=== PATIENT | female | born 1955 | race Caucasian/White ===

== ENCOUNTER → 2023-01-17 08:55 | Outpatient (BNVA) | payer MEDICARE, OTHER, SELFPAY | PROVIDERS: Family Provider Internal Medicine; PCP Family Medicine; Visit Provider Family Medicine | DX: Z13.6 Encounter for screening for cardiovascular disorders (principal); Z01.419 Encounter for gynecological examination (general) (routine) without abnormal findings | CPT/HCPCS: 80053; 80061; 85025; 87624 ==

== ENCOUNTER → 2023-01-23 16:06 | Outpatient (BNVA) | payer MEDICARE, OTHER, SELFPAY | PROVIDERS: Family Provider Internal Medicine; PCP Family Medicine; Visit Provider Obstetrics & Gynecology | DX: N84.1 Polyp of cervix uteri (principal) | CPT/HCPCS: 88305 ==

== ENCOUNTER 2023-02-01 14:43 | Outpatient (CLI) | payer MEDICARE, OTHER, SELFPAY ==
--- NOTE | 2023-02-01 14:46 | MM_ITS ---
WS: [id number] BILATERAL 3D TOMOSYNTHESIS DIGITAL SCREENING MAMMOGRAPHY WITH CAD CLINICAL INFORMATION: screening HISTORY: Screening mammogram. No current complaints. COMPARISON: 2018 TECHNIQUE: Bilateral CC and MLO views. FINDINGS: Scattered fibroglandular densities bilaterally. No suspicious focal mass, asymmetry, calcifications, or architectural distortion. No evidence of malignancy. IMPRESSION: MM/[place] [id number] BI-RADS: 1-Negative FOLLOW UP: 1 Year Follow-up Recommend return to annual screening mammography.
== END 2023-02-01 14:44 | disposition home or self-care (01) ==
LOC: RAD 14:43
PROVIDERS: Family Provider Internal Medicine; PCP Family Medicine; Visit Provider Family Medicine
DX: Z12.31 Encounter for screening mammogram for malignant neoplasm of breast (principal)
CPT/HCPCS: 77063; 77067

== ENCOUNTER → 2023-02-07 10:52 | Outpatient (BNVA) | payer MEDICARE, OTHER, SELFPAY | PROVIDERS: Family Provider Internal Medicine; PCP Family Medicine; Referring Provider Family Medicine; Visit Provider Nurse Practitioner Family | DX: Z85.828 Personal history of other malignant neoplasm of skin (principal); L57.0 Actinic keratosis; D22.5 Melanocytic nevi of trunk; L57.8 Other skin changes due to chronic exposure to nonionizing radiation; L82.1 Other seborrheic keratosis; L82.0 Inflamed seborrheic keratosis | CPT/HCPCS: 17004; 17110; 99203 ==

== ENCOUNTER → 2023-02-08 12:47 | Outpatient (BNVA) | payer MEDICARE, OTHER, SELFPAY | PROVIDERS: Family Provider Internal Medicine; PCP Family Medicine; Referring Provider Family Medicine; Visit Provider Surgery | DX: Z12.11 Encounter for screening for malignant neoplasm of colon (principal) | CPT/HCPCS: 99024; 99203 ==

== ENCOUNTER → 2023-02-24 10:22 | Outpatient (BNVA) | payer MEDICARE, OTHER, SELFPAY | PROVIDERS: Family Provider Internal Medicine; PCP Family Medicine; Visit Provider Obstetrics & Gynecology | DX: N84.1 Polyp of cervix uteri (principal) | CPT/HCPCS: 76830 ==

== ENCOUNTER 2023-03-01 06:05 | Day surgery (SDC) | payer MEDICARE, OTHER, SELFPAY ==
[2023-03-01 06:18] VITALS: BP 137/83; PULSE 113; RESP 16; TEMP 37.2; O2SAT 90; BMI 21.9
[2023-03-01] MEDS: sodium chloride 0.9% 1,000 ML 30 ML IV (06:29)
--- NOTE | 2023-03-01 06:39 | W.PM.OPSUD ---
Surgery/Procedure H&P Update DATE OF PROCEDURE: March 01, 2023 DATE H&P PERFORMED: 02/08/22 H&P UPDATE INFORMATION: I have reviewed H&P completed within last 30 days, I have examined patient prior to procedure and No changes to prior documentation PLANNED PROCEDURE: Operation Date: 03/01/23 07:00 Proposed Procedures p 12685 colon G0121 screen colon A risk Z12.11(Not Applicable) - Ralph Grimes, DO
--- NOTE | 2023-03-01 06:48 | ANES.PREANE2 ---
Pre-Anesthetic Assessment Height/Weight: Height 1.63 m Weight 58.06 kg Temp Pulse Resp BP Pulse Ox O2 Del Method 99.0 F 113 H 16 137/83 90 Room Air 03/01/23 06:18 03/01/23 06:18 03/01/23 06:18 03/01/23 06:18 03/01/23 06:18 03/01/23 06:18 Operation Date: 03/01/23 07:00 Proposed Procedures p 27955 colon G0121 screen colon A risk Z12.11(Not Applicable) - Ralph Grimes DO Last intake: Intake Last Liquid Date 02/28/23 Last Liquid Time 22:30 Last Solid Date 02/27/23 Last Solid Time 19:00 Social Tobacco Exam alert, oriented x 3 and regular rate & rhythm Airway Submandibular: within normal limits Cervical ROM: within normal limits Mallampati: Class I Dentition: false History/ROS No significant history except as noted and No significant complaints Pulmonary Cough, Exertional Dyspnea and Shortness of Breath CV/HEM None reported None reported Hepatic None reported GI None reported Metabolic None reported Musc/skel Osteoarthritis/DJD Neuropsych Anxiety and Depression Anesthetic Plan ASA status: 2 Anesthesia: MAC Risk of > 500 ml blood loss (7ml/kg in children): No Medications/Allergies Home Medications Medication Instructions Recorded Confirmed Last Taken Type bupropion HCl 300 mg 24 hr tablet, 300 mg PO QAM #30 tabs 01/17/23 03/01/23 03/01/23 Rx extended release Allergies Allergy/AdvReac Type Severity Reaction Status Date / Time No Known Allergies Allergy Unverified 02/08/23 13:02 Current Medications Generic Name Dose Route Start Last Admin Trade Name Evelyn PRN Reason Stop Dose Admin Sodium Chloride 1,000 mls @ 30 mls/hr 03/01/23 06:15 03/01/23 06:29 Sodium Chloride 0.9% IV 03/02/23 06:14 30 mls/hr .Q24H ROSA Administration PFSH Anesthesia Medical History History of squamous cell carcinoma History of basal cell cancer History of depression History of anxiety Surgical History History of laminectomy Lumbar History of tubal ligation History of cataract surgery Family History Grandfather Liver disease Father Diabetes mellitus, type 2 Chronic kidney disease (CKD) Mother Cancer Grandmother Dementia Social History Smoking and tobacco/nicotine status: current every day tobacco/nicotine user Quit status (tobacco/nicotine): not considering quitting Alcohol intake: never Substance/Drug Use: current Household members: children Housing: House Marital status: / Number of children: 2 Highest education level completed: Associate Degree: Occupational, Technical, Vocational Program 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
[2023-03-01 07:29] VITALS: BP 134/77; PULSE 85; RESP 16; TEMP 36.1; O2SAT 98
[2023-03-01 07:42] VITALS: BP 141/84; PULSE 77; RESP 18
--- NOTE | 2023-03-01 14:14 | ANE.PACU2 ---
Inpatient post-anesthesia follow up: Airway intact: Yes Vital signs: Temperature 97.0 F Pulse Rate 77 Respiratory Rate 18 Blood Pressure 141/84 Pulse Oximetry 98 Oxygen Delivery Me thod Room Air Oxygen Flow Rate Fraction of Inspir ed Oxygen Hydration adequate: Yes Nausea and vomiting: No Pain level: 2 Mental status: Baseline
== END 2023-03-01 08:00 | disposition home or self-care (01) ==
PROVIDERS: PCP Family Medicine; Visit Provider Surgery
PROC: 0DJD8ZZ Inspection of Lower Intestinal Tract, Via Natural or Artificial Opening Endoscopic (ICD-10-PCS; CPT 45378; principal; 2023-03-01 07:00)
DX: Z12.11 Encounter for screening for malignant neoplasm of colon (principal); K63.5 Polyp of colon; F17.210 Nicotine dependence, cigarettes, uncomplicated
CPT/HCPCS: 45385; 88305; J2704; J7030

== ENCOUNTER → 2023-03-20 08:36 | Outpatient (BNVA) | payer MEDICARE, OTHER, SELFPAY | PROVIDERS: PCP Family Medicine; Visit Provider Surgery | DX: Z09 Encounter for follow-up examination after completed treatment for conditions other than malignant neoplasm (principal); D37.4 Neoplasm of uncertain behavior of colon | CPT/HCPCS: 99214 ==

== ENCOUNTER → 2024-01-29 09:00 | Outpatient (BNVA) | payer MEDICARE, OTHER, SELFPAY | PROVIDERS: PCP Family Medicine; Referring Provider Family Medicine; Visit Provider Surgery | DX: R03.0 Elevated blood-pressure reading, without diagnosis of hypertension (principal); K40.20 Bilateral inguinal hernia, without obstruction or gangrene, not specified as recurrent; Z12.11 Encounter for screening for malignant neoplasm of colon; D12.6 Benign neoplasm of colon, unspecified | CPT/HCPCS: 99214 ==

== ENCOUNTER 2024-01-30 09:51 | Outpatient (CLI) | payer MEDICARE, OTHER, SELFPAY ==
--- NOTE | 2024-01-30 10:00 | CT_ITS ---
WS: [id number] LDCT LUNG CANCER SCREENING HISTORY: smoker; 50pk yr hx; screening lung ca TECHNIQUE: Axial imaging performed from the apices to 1 cm below the costophrenic angles. Coronal and sagittal reformats are submitted with axial MIP series. All CT scans at [facility] use at least one of these dose optimization techniques: automated exposure control; mA and/or kV adjustment per patient size (includes targeted exams where dose is matched to clinical indication); or iterativ e reconstruction. DLP: 45.50 mGy.cm DIvol: Mean CTDIvol: 0.70 (mGy) COMPARISON: None available. Diagnostic quality: Satisfactory Lungs: Marked pulmonary hyperinflation. There are a few scattered micronodules. No mass identified wi thin the lungs. Mild pleural thickening along the RIGHT minor fissure. No endobronchial lesions. Heart: Normal size heart with no pericardial effusion.. Other findings: Significant fullness noted at the level of the LEFT aortopulmonary window and LEFT hi lum. Additional increased lymph node burden, subcarinal and inferior RIGHT paratracheal. Mild atherosclerosis aorta. Diffuse sarcopenia. Adrenal glands are poorly visualized. Mild increase i n osteopenia. CT/CT lung screening [id number] IMPRESSION: LUNG-RADS: 2S-Benign Appearance or Behavior with Significant Findings FOLLOW UP: See Report OTHER FINDINGS (S MODIFIER): There is significant fullness at the LEFT hilum an d at the AP window. Recommend chest CT with IV contrast follow-up at this time. Mediastinal and hilar lymphadenopathy is suspected and needs to be excluded.
== END 2024-01-30 09:52 | disposition home or self-care (01) ==
LOC: RAD 09:52
PROVIDERS: PCP Family Medicine; Visit Provider Family Medicine
DX: Z12.2 Encounter for screening for malignant neoplasm of respiratory organs (principal); F17.219 Nicotine dependence, cigarettes, with unspecified nicotine-induced disorders; R93.1 Abnormal findings on diagnostic imaging of heart and coronary circulation; M62.84 Sarcopenia; R91.8 Other nonspecific abnormal finding of lung field
CPT/HCPCS: 71271

== ENCOUNTER 2024-03-05 06:20 | Day surgery (SDC) | payer MEDICARE, SELFPAY ==
[2024-03-05] VITALS (15 sets, daily range): BP systolic 112–161; BP diastolic 74–86; PULSE 92–107; RESP 15–20; TEMP 36.1–36.5; O2SAT 87–95; BMI 22.3
[2024-03-05] MEDS: sodium chloride 0.9% 1,000 ML 30 ML IV (06:41)
--- NOTE | 2024-03-05 07:01 | PM.HP ---
Providers/Chief Complaint Primary Care Provider: Padmini Curiel MD Chief Complaint: K40.20 History of Present Illness Radha Woods is a 68 year old female Review of Systems General: Reports: 10 or more systems reviewed and unremarkable except in HPI and below Medications/Allergies Home Medications Medication Instructions Recorded Confirmed Last Taken Type bupropion HCl 300 mg 24 hr tablet, 300 mg PO QAM #30 tabs 12/15/23 03/05/24 03/04/24 Rx extended release Allergies Allergy/AdvReac Type Severity Reaction Status Date / Time No Known Allergies Allergy Unverified 01/29/24 09:03 PFSH Acute PFSH: Medical History Anxiety and depression Screening for lung cancer Nicotine dependence, cigarettes, uncomplicated History of squamous cell carcinoma History of basal cell cancer Surgical History Hx of colonoscopy with polypectomy 1.24---adenomas; to f/u 3 yrs History of laminectomy Lumbar History of tubal ligation History of cataract surgery OU Family History Grandfather Liver disease Father Diabetes mellitus, type 2 Chronic kidney disease (CKD) Mother Cancer squamous cell of bile duct that metastasized Grandmother Dementia Social History Smoking and tobacco/nicotine status: current every day tobacco/nicotine user cigarettes Packs smoked per day: 1 Years cigarettes smoked: 50 [ Other cigarette details: age 18 started] Quit status (tobacco/nicotine): not considering quitting Alcohol intake: never Substance/Drug Use: current Household members: children Housing: House Marital status: / Number of children: 3 Highest education level completed: Associate Degree: Occupational, Technical, Vocational Program 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 Education Current occupational status: employed 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[employer] Current occupational exposures/hazards: No Vitals/I&O/Wt Last Vital Signs Temp 97.7 F 03/05/24 06:35 Pulse 102 H 03/05/24 06:35 Resp 20 H 03/05/24 06:35 BP 143/86 03/05/24 06:35 Pulse Ox 92 03/05/24 06:35 O2 Del Method Room Air 03/05/24 06:44 Weight last 48 hrs Weight 130 lb A&P Assessment and plan (1) Bilateral inguinal hernia: Plan Laparoscopic right inguinal hernia repair with mesh Laparoscopic left inguinal hernia repair with mesh The risks and benefits were explained and documented Attestations Medical Necessity Statement*: Home Coding Level of Care Code Acute Code for Chg Fwd Diagnoses Bilateral inguinal hernia K40.20
--- NOTE | 2024-03-05 07:21 | ANES.PREANE2 ---
Pre-Anesthetic Assessment Height/Weight: Height 1.63 m Weight 58.967 kg Temp Pulse Resp BP Pulse Ox O2 Del Method 97.7 F 102 H 20 H 143/86 92 Room Air 03/05/24 06:35 03/05/24 06:35 03/05/24 06:35 03/05/24 06:35 03/05/24 06:35 03/05/24 06:44 Operation Date: 03/05/24 08:00 Proposed Procedures p Laparoscopic Inguinal Hernia Repair with mesh [id number]: K40.20(Bilateral) - Ralph Grimes DO Familial anesthetic complications: None Was Beta Marilyn taken within 24 hours: N/A Was Clonidine taken within 24 hours: N/A Last intake: Intake Last Liquid Date 03/04/24 Last Liquid Time 22:00 Last Solid Date 03/04/24 Last Solid Time 19:00 Social Tobacco and No alcohol Exam alert, oriented x 3, clear to auscultation bilaterally and regular rate & rhythm Airway Mallampati: Class II Dentition: false Anesthetic Plan ASA status: 2 Anesthesia: General Risk of > 500 ml blood loss (7ml/kg in children): No Medications/Allergies Home Medications Medication Instructions Recorded Confirmed Last Taken Type bupropion HCl 300 mg 24 hr tablet, 300 mg PO QAM #30 tabs 12/15/23 03/05/24 03/04/24 Rx extended release Allergies Allergy/AdvReac Type Severity Reaction Status Date / Time No Known Allergies Allergy Unverified 01/29/24 09:03 Current Medications Generic Name Dose Route Start Last Admin Trade Name Freq PRN Reason Stop Dose Admin Sodium Chloride 1,000 mls @ 30 mls/hr 03/04/24 14:45 03/05/24 06:41 Sodium Chloride 0.9% IV 03/05/24 14:44 30 mls/hr .Q24H ROSA Administration PFSH Anesthesia Medical History Anxiety and depression Screening for lung cancer Nicotine dependence, cigarettes, uncomplicated History of squamous cell carcinoma History of basal cell cancer Surgical History Hx of colonoscopy with polypectomy 1.24---adenomas; to f/u 3 yrs History of laminectomy Lumbar History of tubal ligation History of cataract surgery OU Family History Grandfather Liver disease Father Diabetes mellitus, type 2 Chronic kidney disease (CKD) Mother Cancer squamous cell of bile duct that metastasized Grandmother Dementia Social History Smoking and tobacco/nicotine status: current every day tobacco/nicotine user cigarettes Packs smoked per day: 1 Years cigarettes smoked: 50 [ Other cigarette details: age 18 started] Quit status (tobacco/nicotine): not considering quitting Alcohol intake: never Substance/Drug Use: current Household members: children Housing: House Marital status: / Number of children: 3 Highest education level completed: Associate Degree: Occupational, Technical, Vocational Program Education level 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
[2024-03-05] MEDS: ceFAZolin 2,000 mg SDV 2000 MG IVP (07:53)
[2024-03-05] MEDS: tranexamic acid 1,000 mg/10mL SDV 1000 MG IV (08:38)
[2024-03-05] MEDS: lidocaine-epi 2% PF 1:200,000 20 mL SDV XX (08:39)
--- NOTE | 2024-03-05 09:04 | PM.OP ---
Operative Report Date of procedure: March 05, 2024 Surgeon: Ralph Grimes DO Procedure: Pre-op diagnosis: Bilateral inguinal hernias Post-op diagnosis: Bilateral direct inguinal hernias Procedure done: Laparoscopic (TEPP) repair of right inguinal hernia with mesh Laparoscopic (TEPP) repair of left inguinal hernia with mesh Implants: Left and right extra-large 3D max Bard mesh is Specimens removed/disposition: None Surgeon: Ralph Grimes DO Anesthesia: General and Local Estimated blood loss (mL): 5 Complications: None apparent Brief History: This is a very pleasant 68-year-old female who presented my office with bilateral inguinal hernias. Laparoscopic repair with mesh was indicated. The risks and benefits were explained and documented. Procedure: Patient was wheeled into the operative room and placed on the OR table in a supine position. Abdomen was inspected prepped and draped in usual sterile fashion. Time-out was performed and all present were in agreement. A 15 blade scalpel was used to make 1.2 centimeter incision infraumbilically. Combination of sharp and blunt dissection was performed down to the anterior rectus sheath which was opened sharply. The dissecting balloon was then inserted into the space of Retzius and blown up. We put the camera into the port and identified that we were in the correct space. I then placed 2 5 millimeter trocars suprapubically in the midline. I then used endokitners to bluntly dissect in the space of Retzius out laterally. A direct inguinal hernia was identified on the right. Blunt dissection was performed to dissect down the hernia sac out of the defect. An extra-large 3D max Bard right inguinal mesh was then placed into the space of Retzius. The mesh was unrolled and tacked once medially at the pubic bone. The mesh laid out nicely over the defect. A direct inguinal hernia was identified on the left. Blunt dissection was performed to dissect down the hernia sac out of the defect. An extra-large 3D max Bard left inguinal mesh was then placed into the space of Retzius. The mesh was unrolled and tacked once medially at the pubic bone. The mesh laid out nicely over the defect. Hernia sacs were held underneath the meshes as the insufflation was released. Incisions were closed with 4 O Vicryl in a subcuticular interrupted fashion. Skin glue was applied. Patient tolerated the procedure well.
[2024-03-05] MEDS: HYDROcodone-acetaminophen 7.5-325 mg Tablet 1 TAB PO (10:03)
[2024-03-05] MEDS: albuterol 2.5 mg/3 mL Neb INHALATION (10:37)
[2024-03-05] MEDS: ipratropium 0.5 mg/2.5 mL Neb INHALATION (10:37)
--- NOTE | 2024-03-05 10:59 | PC.NURSE ---
1040 - pt continues to run 88% on room air and 90 on 2L. receiving breathing treatment.
--- NOTE | 2024-03-05 11:43 | PC.NURSE ---
1130 - pt up to bathroom. back to bed. O2 sat 77% when hooked back up to pulse ox. pt up to 90%on room air. Dr. Acharya in to see pt. pt has no distress at this time. instructed to watch pt for a while longer.
--- NOTE | 2024-03-05 12:02 | PC.NURSE ---
pt sat running 88%-90% on room air.
--- NOTE | 2024-03-05 12:07 | PC.NURSE ---
spoke with dr. crook . ok for pt to go home . instructed to return to the ER for any problems breathing.
--- NOTE | 2024-03-05 12:10 | ANE.PACU2 ---
Inpatient post-anesthesia follow up: Airway intact: Yes Vital signs: Temperature 97 F Pulse Rate 103 Respiratory Rate 18 Blood Pressure 133/76 Pulse Oximetry 90 Oxygen Delivery Me thod Room Air Oxygen Flow Rate 2 Fraction of Inspir ed Oxygen Hydration adequate: Yes Nausea and vomiting: No Pain level: 1 Mental status: Baseline
== END 2024-03-05 12:10 | disposition home or self-care (01) ==
PROVIDERS: PCP Family Medicine; Visit Provider Surgery
PROC: (CPT 49650; principal; 2024-03-05 08:00)
DX: K40.20 Bilateral inguinal hernia, without obstruction or gangrene, not specified as recurrent (principal); F17.210 Nicotine dependence, cigarettes, uncomplicated; Z85.828 Personal history of other malignant neoplasm of skin
CPT/HCPCS: 49650; 51702; 94640; C1781; J0690; J2250; J2704; J3010; J3490; J7030; J7613; J7644

== ENCOUNTER → 2024-03-18 09:51 | Outpatient (BNVA) | payer MEDICARE, SELFPAY | PROVIDERS: PCP Family Medicine; Visit Provider Surgery | DX: Z98.890 Other specified postprocedural states (principal); Z87.19 Personal history of other diseases of the digestive system | CPT/HCPCS: 99024 ==

== ENCOUNTER 2024-04-08 10:54 | Outpatient (CLI) | payer MEDICARE, SELFPAY ==
--- NOTE | 2024-04-08 10:57 | MM_ITS ---
WS: [id number] SCREENING DIGITAL TOMOSYNTHESIS MAMMOGRAM WITH CAD HISTORY: SCREENING COMPARISON: 02/01/2023, 05/22/2017 Bilateral CC and MLO with tomosynthesis views submitted. Synthetic mammography reviewed. Computer aided detection analyzed. Breast composition: There are scattered areas of fibroglandular density. No suspicious masses, microcalcifications or architectural distortion. MM/MM scr BI tomosynthesis [id number] IMPRESSION: BI-RADS: 2 - Benign. FOLLOW UP: 1 Year Follow-up
== END 2024-04-08 10:55 | disposition home or self-care (01) ==
LOC: RAD 10:55
PROVIDERS: PCP Family Medicine; Visit Provider Family Medicine
DX: Z12.31 Encounter for screening mammogram for malignant neoplasm of breast (principal); R92.323 Mammographic fibroglandular density, bilateral breasts
CPT/HCPCS: 77063; 77067

== ENCOUNTER 2024-05-05 06:29 | Emergency (ER) | payer MEDICARE, SELFPAY ==
[2024-05-05] VITALS (60 sets, daily range): BP systolic 80–115; BP diastolic 51–78; PULSE 69–158; RESP 15–39; TEMP 36.6; O2SAT 87–94; BMI 21.8
--- NOTE | 2024-05-05 06:42 | ECG_ITS ---
Athletic Standard Test Date: 2024-05-05 Pat Name: Radha Woods Department: Room: Gender: Female Rink Rat: : 1955 Requested By: Basim Meneses Order Number: [id number] Reading MD: Measurements Intervals [place] Rate: 154 P: 0 WA: 0 QRS: 127 QRSD: 72 T: 46 QT: 234 QTc: 375 Interpretive Statements ATRIAL FLUTTER/TACHYCARDIA WITH RAPID VENTRICULAR RESPONSE SEPTAL MYOCARDIAL INFARCTION , OF INDETERMINATE AGE [40+ ms Q WAVE IN V1/V2] LATERAL MYOCARDIAL INFARCTION , OF INDETERMINATE AGE [40+ ms Q WAVE AND/OR ST/T ABNORMALITY IN I/aVL/V5/V6] CRITICAL TEST RESULT No previous ECG available for comparison [email or web address]
--- NOTE | 2024-05-05 06:54 | XRR_ITS ---
PROCEDURE INFORMATION: Exam: XR Chest Exam date and time: 05/05/2024 7:48 AM Age: 68 years old Clinical indication: Shortness of breath; Additional info: Tachycardia, shortness of breath TECHNIQUE: Imaging protocol: Radiologic exam of the chest. Views: 1 view. COMPARISON: CT lung screening [id number] 01/30/2024 10:07 AM FINDINGS: Lungs: Left lower lobe consolidation/collapse. Left upper lobe collapsed. Pleural spaces: Moderate left pleural effusion. Heart/Mediastinum: Unremarkable. No cardiomegaly. Vasculature: There are aortic arch calcifications. Bones/joints: There are mild degenerative changes of the glenohumeral joint. Mild degenerative disease of bilateral acromioclavicular joints. Soft tissues: Left hilar soft tissue lesion is partially obliterated by surrounding airspace opacities. XR/XR chest 1V portable [id number] IMPRESSION: 1. Left hilar mass with collapse of the left upper lobe. 2. Moderate left pleural effusion with left lower lobe consolidation/collapse
[2024-05-05] MEDS: dilTIAZem 5 mg/mL SDV 5 mL 10 MG IVP (06:58)
--- NOTE | 2024-05-05 07:07 | ED_ITS ---
HPI - Arrhythmia/Palpitations 2 General: Chief Complaint: Arrhythmia/Palpitations Stated Complaint: sob for a few days Time Seen by Provider: 05/05/24 06:44 History of Present Illness: Patient presents to the ER with a fast heart rate and shortness of breath. Patient said this been going on for couple days she gets this frequently but normally she can take 2 or 3 big deep breaths and her heart rate will slow back down but starting about 2 hours ago her heart rate would not slow down even when she was taking big deep breaths. She denies any chest pain. Upon arrival to the ER patient has a heart rate of about 155 beats a minute. Over the last week or so patient has been prescribed 2 antibiotics, breathing treatments and steroids by her PCP patient states this did not help and she is just progressively got worse. Related Data Previous Rx's ?Medication ?Instructions ?Recorded bupropion HCl 300 mg 24 hr tablet, 300 mg PO QAM #30 t abs 12/15/23 extended release albuterol sulfate 90 mcg/actuation 2 puff inhalation Q 4H PRN 04/30/24 aerosol inhaler (Ventolin HFA) shortness of breath or wheezing #8.5 grams amoxicillin 875 mg-potassium 1 tab PO BID 10 days #20 tabs 04/30/24 clavulanate 125 mg tablet prednisone 20 mg tablet 40 mg (2 x 20 mg) PO DAILY 5 days 04/30/24 #10 tabs budesonide-formoterol HFA 80 2 puff inhalation BID #10 .2 grams 05/03/24 mcg-4.5 mcg/actuation aerosol inhaler Allergies Allergy/AdvReac Type Severity Reaction Status Date / Time No Known Allergies Allergy Verified 04/30/24 10:26 Review of Systems 2 General: Reports: 10 or more systems reviewed and unremarkable except in HPI and below PFSH ED 2 PFSH: Medical History COPD (chronic obstructive pulmonary disease) Anxiety and depression Screening for lung cancer had LDCT, needs CT w/ contrast due to abnormal Nicotine dependence, cigarettes, uncomplicated History of squamous cell carcinoma History of basal cell cancer Surgical History History of bilateral inguinal hernia repair Hx of colonoscopy with polypectomy 1.24---adenomas; to f/u 3 yrs History of laminectomy Lumbar History of tubal ligation History of cataract surgery OU Family History Grandfather Liver disease Father Diabetes mellitus, type 2 Chronic kidney disease (CKD) Mother Cancer squamous cell of bile duct that metastasized Grandmother Dementia Social History Smoking and tobacco/nicotine status: current every day tobacco/nicotine user cigarettes Packs smoked per day: 1 Years cigarettes smoked: 50 [ Other cigarette details: age 18 started] Quit status (tobacco/nicotine): not considering quitting Alcohol intake: never Substance/Drug Use: current Household members: children Housing: House Marital status: / Number of children: 3 Highest education level completed: Associate Degree: Occupational, Technical, Vocational Program 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 Education Current occupational status: employed 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[employer] Current occupational exposures/hazards: No Physical Exam 2 Const: COMMON NORMALS: no acute distress, average body habitus, patient oriented x3, no limitations, healthy appearing, alert and well nourished HENMT: COMMON NORMALS: normocephalic, atraumatic, hearing grossly normal bilaterally, external ears normal, Normal external nose present, moist oral mucous membranes and oropharynx normal HEAD & SCALP: normocephalic and atraumatic NOSE: Normal external nose present EXTERNAL EAR: Yes external ears normal Neck/C-Spine: COMMON NORMALS: full ROM, no lymphadenopathy, supple, no meningeal signs, no JVD and Thyroid normal THYROID: Thyroid normal Chest: COMMONS NORMALS: normal inspection of the chest and normal palpation of entire chest wall Resp: COMMON NORMALS: normal respiratory effort, No retractions and No use of accessory muscles; negative for clear to auscultation bilaterally (Bilateral rhonchi) A USCULTATION: not clear to auscultation bilaterally (Bilateral rhonchi) Cardio: COMMON NORMALS: no JVD, regular rhythm, S1 normal heart sound present, S2 normal heart sound present, No gallops present (Cardio), No clicks present (Cardio) and No murmurs present (Cardio); negative for regular rate (Tachycardia) RATE: abnormal rate (Tachycardia) RHYTHM: regular rhythm HEART SOUNDS: S1 normal heart sound present and S2 normal heart sound present GI: COMMON NORMALS: Normal to inspection, nondistended, normoactive bowel sounds present, Soft to palpation, non-tender, No hepatosplenomegaly present and no masses PALPATION: Yes Soft to palpation and Yes No hepatosplenomegaly present Neuro: COMMON NORMALS: patient oriented x3 SENSORIUM/ORIENTATION: Yes alert MENINGEAL SIGNS: Yes no meningeal signs Course 2 Vital Signs: Vital signs: Vital Signs Temperature 97.9 F 05/05/24 06:40 Pulse Rate 92 05/05/24 09:55 Respiratory Rate 33 H 05/05/24 09:55 Blood Pressure 100/60 05/05/24 09:55 Pulse Oximetry 93 05/05/24 09:55 Oxygen Delivery Me thod Nasal Cannula 05/05/24 07:18 Oxygen Flow Rate 2 05/05/24 07:18 MDM - Arrhythmia/Palpitations Medical Decision Making Patient given 10 mg push of Cardizem which did not elicit response, patient then given 20 mg push Cardizem which dropped heart rate down to the 80s and atrial flutter rhythm. Then rate progressed to climb back up to the 150s. Patient was put on a Cardizem drip which kept her rate down to the 80s and fluids patient slowly titrated off of it. Patient also placed on 2 L of oxygen and then slowly titrated off. Patient proceeded to keep her heart rate in the 90s and her oxygen saturation in the 90s on room air. Lab work was reviewed as well as chest x-ray and chest CT. Chest CT showed to the left hilar mass obliterating the left upper lobe. Patient was informed of these results and does not want home oxygen or inpatient treatment. Both of these were offered. Patient will be referred to pulmonology on an outpatient basis and allowed to go home. Medical Records I reviewed the patient's medical records. Lab Data I reviewed the patient's lab results. 05/05/24 06:55 05/05/24 06:55 Radiology Impressions Chest X-Ray 05/05/24 06:54 IMPRESSION: 1. Left hilar mass with collapse of the left upper lobe. 2. Moderate left pleural effusion with left lower lobe consolidation/collapse Chest CT 05/05/24 08:15 IMPRESSION: 1. Left tiny left hilar mass obliterating the left upper lobe bronchus with left upper lobe collapse. Left lower cervical/supraclavicular enlarged lymph nodes. 2. Mild narrowing of the left pulmonary artery. No pulmonary embolism. 3. Moderate left pleural effusion. COMMENTS: The presence of pulmonary emphysema on CT is an independent risk factor for lung cancer. In the absence of a history or active diagnosis of lung cancer, it is recommended that this patient with emphysema be evaluated for enrollment in a low dose CT lung cancer screening program. Laboratory Results WBC 8.33 10^3/uL (3.29-11.43) 05/05/24 06:55 RBC 5.51 10^6/uL (3.85-5.65) 05/05/24 06:55 Hgb 17.50 g/dL (11.27-16.99) H 05/05/24 06:55 Hct 53.5 % (36-47) H 05/05/24 06:55 MCV 97.1 fl (85-98) 05/05/24 06:55 MCH 31.8 pg (27-33) 05/05/24 06:55 MCHC 32.7 g/dL (30-55) 05/05/24 06:55 RDW 14.3 % (12.1-15.1) 05/05/24 06:55 Plt Count 259 10^3/cmm (157-399) 05/05/24 06:55 MPV 10.9 fL (7.4-10.4) H 05/05/24 06:55 Neut % (Auto) 60.7 % 05/05/24 06:55 Lymph % (Auto) 29.8 % 05/05/24 06:55 [place] % (Auto) 8.2 % 05/05/24 06:55 Eos % (Auto) 0.6 % 05/05/24 06:55 Baso % (Auto) 0.5 % 05/05/24 06:55 Neut # (Auto) 5.06 10^3/uL (1.8-7.7) 05/05/24 06:55 Lymph # (Auto) 2.5 10^3/uL (0.8-4.8) 05/05/24 06:55 [place] # (Auto) 0.7 10^3/uL (0.2-0.9) 05/05/24 06:55 Eos # (Auto) 0.1 10^3/uL (0.0-0.8) 05/05/24 06:55 Baso # (Auto) 0.0 10^3/uL (0.0-0.1) 05/05/24 06:55 Nucleated RBC % (auto) 0 % 05/05/24 06:55 Nucleated RBCs # 0.0 /100WBC 05/05/24 06:55 PT 12.10 SECONDS (12.1-14.9) 05/05/24 06:55 INR 0.84 (0.8-1.2) 05/05/24 06:55 Sodium 135 mmol/L (136-145) L 05/05/24 06:55 Potassium 4.5 mmol/L (3.5-5.1) 05/05/24 06:55 Chloride 99 mmol/L (98-107) 05/05/24 06:55 Carbon Dioxide 24 mmol/L (22-29) 05/05/24 06:55 Anion Gap 16.5 (5-19) 05/05/24 06:55 BUN 13 mg/dL (8-23) 05/05/24 06:55 Creatinine 0.6 mg/dL (0.5-0.9) 05/05/24 06:55 GFR Calculation 100.0 mL/min (90-130) 05/05/24 06:55 Glucose 103 mg/dL (65-115) 05/05/24 06:55 Calculated Osmolality 280 mOsm/kg (285-295) L 05/05/24 06:55 Lactic Acid 1.3 mmol/L (0.5-2.2) 05/05/24 06:55 Calcium 9.2 mg/dL (8.5-10.5) 05/05/24 06:55 Magnesium 2.1 mg/dL (1.7-2.3) 05/05/24 06:55 Total Bilirubin 0.4 mg/dL (0.15-1.2) 05/05/24 06:55 AST 26 U/L (0-32) 05/05/24 06:55 ALT 54 U/L (0-33) H 05/05/24 06:55 Alkaline Phosphatase 129 U/L (35-105) H 05/05/24 06:55 Troponin T Baseline 15 ng/L (0-10) H 05/05/24 06:55 Troponin T 120 Minute 19.46 ng/L (0-10) H 05/05/24 08:34 Delta Troponin T 4.46 ABS# (0-10) 05/05/24 08:34 NT-Pro-B Natriuret Pep 338 pg/mL (0-125) H 05/05/24 06:55 Total Protein 6.5 g/dL (6.6-8.7) L 05/05/24 06:55 Albumin 4.0 g/dL (3.5-5.2) 05/05/24 06:55 Globulin 2.5 g/dL (1.3-4.6) 05/05/24 06:55 Procalcitonin 0.05 ng/mL (0-0.5) 05/05/24 06:55 Urine Color Yellow (Yellow) 05/05/24 10:38 Urine Appearance Clear (CLEAR) 05/05/24 10:38 Urine pH 6.5 (5-7) 05/05/24 10:38 Ur Specific Russell 1.005 (1.005-1.030) 05/05/24 10:38 Urine Protein 1+ (Negative) H 05/05/24 10:38 Urine Glucose (UA) Norm (Normal) 05/05/24 10:38 Urine Ketones Negative (Negative) 05/05/24 10:38 Urine Blood 2+ (Negative) H 05/05/24 10:38 Urine Nitrate Negative (Negative) 05/05/24 10:38 Urine Bilirubin Neg (Negative) 05/05/24 10:38 Urine Urobilinogen 1 mg/dL (Negative) H 05/05/24 10:38 Ur Leukocyte Esterase Negative (Negative) 05/05/24 10:38 Urine RBC 0-4 /hpf (0-2) H 05/05/24 10:38 Urine WBC 0-4 /hpf (0-5) H 05/05/24 10:38 Ur Squamous Epith Cells 0-4 /hpf (0-5) H 05/05/24 10:38 Amorphous Sediment Not Reportable 05/05/24 10:38 Urine Bacteria Trace /hpf (NONE) 05/05/24 10:38 Urine Opiates Screen Negative ng/mL (Negative) 05/05/24 10:38 Ur Barbiturates Screen Negative ng/mL (Negative) 05/05/24 10:38 Ur Phencyclidine Scrn Negative ng/mL (Negative) 05/05/24 10:38 Ur Amphetamines Screen Negative ng/mL (Negative) 05/05/24 10:38 U Benzodiazepines Scrn Negative ng/mL (Negative) 05/05/24 10:38 Urine Cocaine Screen Negative ng/mL (Negative) 05/05/24 10:38 U Marijuana (THC) Screen Positive ng/mL (Negative) H 05/05/24 10:38 Influenza A (PCR) Negative (Negative) 05/05/24 07:11 Influenza Type B (PCR) Negative (Negative) 05/05/24 07:11 RSV (PCR) Negative (Negative) 05/05/24 07:11 SARS-CoV-2 (PCR) Negative (Negative) 05/05/24 07:11 All radiology interpretation(s) finalized by discharge Discharge Plan Discharge Patient Disposition: Home Clinical Impression: Lung nodule, solitary, Paroxysmal atrial fibrillation with rapid ventricular response Condition: Stable Prescriptions: No Action amoxicillin-pot clavulanate 875-125 mg tablet 1 tab PO BID 10 Days Qty: 20 0RF prednisone 20 mg tablet 40 mg PO DAILY 5 Days Qty: 10 0RF albuterol sulfate [Ventolin HFA] 90 mcg/actuation HFA aerosol inhaler 2 puff inhalation Q4H PRN (Reason: shortness of breath or wheezing) Qty: 8.5 0RF bupropion HCl 300 mg tablet extended release 24 hr 300 mg PO QAM Qty: 30 0RF budesonide-formoterol 80-4.5 mcg/actuation HFA aerosol inhaler 2 puff inhalation BID Qty: 10.2 0RF Discharge Orders: Discharge ED (Routine); Ordered 05/05/24 Ordered By: Basim Meneses Referrals: Padmini Curiel MD [Primary Care Provider] - 1 week Patient Instructions: Atrial Flutter (ED), Pulmonary Nodules (ED) Activity Restrictions/Additional Instructions: Your evaluation ER showed your heart was in a rate called atrial fibrillation this was treated with IV medicine and your heart rate went back to a normal rhythm. If your heart rate stays elevated you may need to be on continuous medicine to prevent this. During your evaluation a CT scan was also performed which showed a lung nodule affecting your left upper lobe. This nodule needs further evaluation and treatment with probable biopsy. You will be referred to a shank stapler for further evaluation and treatment. Otherwise please follow- up with your family practice physician within next 7 days. Print Language: Maori Coding Level of Care Code ED Retail Warehouse Associate for Bebeto Diaz
[2024-05-05] MEDS: dilTIAZem 5 mg/mL SDV 5 mL 20 MG IVP (07:09)
[2024-05-05 07:15] LABS: Basophils % 0.5 %; Eosinophils # 0.1 10^3/uL (0.0-0.8); Eosinophils % 0.6 %; Hematocrit 53.5 % (36-47); Lymphocytes # 2.5 10^3/uL (0.8-4.8); Lymphocytes % 29.8 %; Mean Corpuscular HGB Conc 32.7 g/dL (30-55); Mean Corpuscular Hemoglobin 31.8 pg (27-33); Mean Corpuscular Volume 97.1 fl (85-98); Mean Platelet Volume 10.9 fL (7.4-10.4); Monocytes # 0.7 10^3/uL (0.2-0.9); Monocytes % 8.2 %; Neutrophils # 5.06 10^3/uL (1.8-7.7); Neutrophils % 60.7 %; Nucleated Red Blood Cells % 0 %; Platelet Count 259 10^3/cmm (157-399); Red Blood Count 5.51 10^6/uL (3.85-5.65); Red Cell Distribution Width 14.3 % (12.1-15.1); White Blood Count 8.33 10^3/uL (3.29-11.43)
[2024-05-05] MEDS: ipratropium-albuterol 3 mL Neb INHALATION (07:24)
[2024-05-05 07:29] LABS: INR 0.84 (0.8-1.2)
[2024-05-05 07:31] LABS: Lactic Sepsis W/Reflex 1.3 mmol/L (0.5-2.2)
[2024-05-05 07:34] LABS: Troponin(5th) Baseline 15 ng/L (0-10)
[2024-05-05] MEDS: dilTIAZem 100 MG in sodium chloride 0.9% (add-van) 100 ML IV (07:35)
[2024-05-05 07:53] LABS: NT Pro B Type Natriuretic Pept 338 pg/mL (0-125); Procalcitonin 0.05 ng/mL (0-0.5)
--- NOTE | 2024-05-05 08:01 | ECG_ITS ---
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
[2024-05-05 08:04] LABS: Alanine Aminotransferase 54 U/L (0-33); Alkaline Phosphatase 129 U/L (35-105); Aspartate Amino Transferase 26 U/L (0-32); Blood Urea Nitrogen 13 mg/dL (8-23); Calcium 9.2 mg/dL (8.5-10.5); Carbon Dioxide 24 mmol/L (22-29); Chloride 99 mmol/L (98-107); Globulin 2.5 g/dL (1.3-4.6); Glucose 103 mg/dL (65-115); Magnesium 2.1 mg/dL (1.7-2.3); Osmolality Calculated 280 mOsm/kg (285-295); Sodium 135 mmol/L (136-145); Total Bilirubin 0.4 mg/dL (0.15-1.2); Total Protein 6.5 g/dL (6.6-8.7)
[2024-05-05 08:06] LABS: Anion Gap 16.5 (5-19); Potassium 4.5 mmol/L (3.5-5.1)
--- NOTE | 2024-05-05 08:15 | CTR_ITS ---
PROCEDURE INFORMATION: Exam: CT Chest With Contrast; Diagnostic Exam date and time: 05/05/2024 8:50 AM Age: 68 years old Clinical indication: Shortness of breath; Additional info: Dyspnea, chest pain, shortness of breath, abnormal x-ray TECHNIQUE: Imaging protocol: Diagnostic computed tomography of the chest with contrast. Radiation optimization: All CT scans at this facility use at least one of these dose optimization techniques: automated exposure control; mA and/or kV adjustment per patient size (includes targeted exams where dose is matched to clinical indication); or iterative reconstruction. Contrast material: OMNI 350; Contrast volume: 80 ml; Contrast route: INTRAVENOUS (IV); COMPARISON: CT lung screening [id number] 01/30/2024 10:07 AM RADIATION DOSE METRICS: Total DLP (mGy-cm): 227.1 FINDINGS: Lungs: Left lower lobe consolidation/collapse. There is complete occlusion of the left upper bronchus with left upper lobe collapse. Moderate narrowing of the left lower bronchus. Mild centrilobular emphysematous changes are present. Pleural spaces: Moderate left pleural effusion. Heart: Unremarkable. No cardiomegaly. No pericardial effusion. Coronary arteries: There is no evidence of atherosclerotic coronary artery calcifications. Lymph nodes: There are left supraclavicular lymph nodes measuring to 2.3 x 1.9 cm. Vasculature: There is a left upper mediastinal/left hilar soft tissue mass measuring 8 x 7.5 cm encasing the left main pulmonary artery which is mildly narrowed but patent. The vasculature demonstrates diffuse mild atherosclerotic calcification. Liver: There is a hypodense lesion in segment 4 of the liver measuring 1.4 cm. Bones/joints: The thoracic spine demonstrates mild degenerative changes at multiple levels. Soft tissues: Unremarkable. CT/CT chest w con* [id number] IMPRESSION: 1. Left tiny left hilar mass obliterating the left upper lobe bronchus with left upper lobe collapse. Left lower cervical/supraclavicular enlarged lymph nodes. 2. Mild narrowing of the left pulmonary artery. No pulmonary embolism. 3. Moderate left pleural effusion. COMMENTS: The presence of pulmonary emphysema on CT is an independent risk factor for lung cancer. In the absence of a history or active diagnosis of lung cancer, it is recommended that this patient with emphysema be evaluated for enrollment in a low dose CT lung cancer screening program.
[2024-05-05 08:23] LABS: Influenza A NEGATIVE (Negative); Influenza B NEGATIVE (Negative); Respiratory Syncytial Virus Ce NEGATIVE (Negative); SARS-CoV-2 PCR NEGATIVE (Negative)
[2024-05-05] MEDS: iohexol 350 mg/mL 500 mL Btl (per mL) IV (08:53)
[2024-05-05 09:00] LABS: Troponin 5 2HR 19.46 ng/L (0-10); Troponin 5 2HR Delta 4.46 ABS# (0-10)
[2024-05-05 10:47] LABS: Bilirubin Urine Neg (Negative); Blood Urine 2+ (Negative); Glucose Urine UA Norm (Normal); Ketones Urine Negative (Negative); Leukocyte Esterase Urine Negative (Negative); Nitrate Urine Negative (Negative); Protein Urine 1+ (Negative); Specific Gravity, Urine 1.005 (1.005-1.030); Urine Appearance Clear (CLEAR); Urine Color Yellow (Yellow); Urobilinogen Urine 1 mg/dL (Negative); pH Urine 6.5 (5-7)
[2024-05-05 10:53] LABS: Amphetamines Screen Urine Negative (Negative); Barbiturates Screen Urine Negative (Negative); Benzodiazepines Screen Urine Negative (Negative); Cocaine Screen Urine Negative (Negative); Opiate Screen Urine Negative (Negative); PCP Screen Urine Negative (Negative); THC Screen Urine Positive (Negative)
[2024-05-05 11:02] LABS: Add Urine Microscopic? YES; Bacteria Urine TRACE /hpf; RBC Urine 0-4 /hpf (0-2); Squamous Epithelial Cell Urine 0-4 /hpf (0-5); WBC Urine 0-4 /hpf (0-5)
--- NOTE | 2024-05-06 07:33 | DCPLANNER ---
faxed pulmonology referral to [facility] in [place]
== END 2024-05-05 12:22 | disposition home or self-care (01) ==
PROVIDERS: Emergency Provider Emergency Medicine; PCP Family Medicine
DX: I48.0 Paroxysmal atrial fibrillation (principal); R91.1 Solitary pulmonary nodule; Z11.52 Encounter for screening for COVID-19; F17.210 Nicotine dependence, cigarettes, uncomplicated; J44.9 Chronic obstructive pulmonary disease, unspecified; Z85.828 Personal history of other malignant neoplasm of skin
CPT/HCPCS: 36415; 71045; 71260; 80053; 80306; 81001; 83605; 83735; 83880; 84145; 84484; 85025; 85610; 87637; 93005; 94640; 96365; 96366; 99285; J3490; J9999

== ENCOUNTER 2024-10-16 14:30 | Outpatient (CLI) | payer MEDICARE, SELFPAY ==
--- NOTE | 2024-10-16 14:30 | XR_ITS ---
WS: [id number] SCREENING DEXA SCAN [employer] CLINICAL INFORMATION: postmenopausal COMPARISON: None. FINDINGS: The L1-L4 bone mineral density measures 0.843 g/cm2. This corresponds to a T score score of -2.8 and Z score of -1.3. Left femoral neck bone mineral density measures 0.645 g/cm2. This corresponds to a T score of -2.9 and Z score of -1.7. Right femoral neck bone mineral density measures 0.612 g/cm2. This corresponds to a T score -3.1of and Z score of -1.9. Mean femoral neck bone mineral density measures 0.629 g/cm2. This corresponds to a T score of -3.0 and Z score of -1.8. XR/XR DEXA axial skeleton* [id number] IMPRESSION: Osteoporosis lumbar spine. Osteoporosis femoral necks.
== END 2024-10-16 14:31 | disposition home or self-care (01) ==
LOC: RAD 14:31
PROVIDERS: PCP Family Medicine; Visit Provider Family Medicine
DX: Z78.0 Asymptomatic menopausal state (principal); M85.89 Other specified disorders of bone density and structure, multiple sites
CPT/HCPCS: 77080

== ENCOUNTER → 2024-10-18 11:54 | Outpatient (BNVA) | payer MEDICARE, SELFPAY | PROVIDERS: PCP Family Medicine; Visit Provider Family Medicine | DX: M81.0 Age-related osteoporosis without current pathological fracture (principal); I48.0 Paroxysmal atrial fibrillation | CPT/HCPCS: 82306; 82310; 83970; 84439; 84443 ==

== ENCOUNTER → 2024-12-09 14:24 | Outpatient (BNVA) | payer MEDICARE, SELFPAY | PROVIDERS: PCP Family Medicine; Visit Provider Family Medicine | DX: E03.8 Other specified hypothyroidism (principal) | CPT/HCPCS: 80061; 84439; 84481; 86803 ==